=== PATIENT | male | born 1975 | race Caucasian/White ===

== ENCOUNTER → 2019-10-10 | Outpatient (REF) | LOC: M LAB LCGH 14:07 | PROVIDERS: ATTEND Surgery | DX: K35.80 Unspecified acute appendicitis (principal) ==

== ENCOUNTER → 2021-03-21 | Outpatient (REF) | payer OTHER ==
--- NOTE | 2021-03-22 10:09 | ECHO ---
DATE OF PROCEDURE: 03/21/2021 Age: 45 Gender: Male Height: 175 cm Weight: 95 kg REFERRING PHYSICIAN: Obnina Fisher M.D. INDICATION: Heart murmur. MEASUREMENTS: IVS 1.0 cm LV 5.2 cm LVPW 0.9 cm LA 4.0 cm Aorta 4.0 cm IVC 1.6 cm Mitral E wave velocity 73 cm/s Mitral A wave 46 cm/s E prime septal 10.3 cm/s E prime lateral 13.1 cm/s FINDINGS: This study is of good technical quality. The patient is in sinus rhythm. Left ventricle is normal size. There is hyperdynamic contractility, I estimate overall LVEF 60% to 65%. No segmental wall motion abnormalities are noted. Right ventricle is also of normal size and systolic function. Left atrium is borderline dilated. Right atrium appears normal. Aortic valve is tricuspid and has normal mobility. Mitral valve and tricuspid valve appear normal. Pulmonic valve also appears normal based on limited views. No pericardial effusion is noted. Inferior vena cava is of normal size and appropriately collapses with inspiration corresponding to normal central venous pressure. Aortic root is borderline dilated at 4.0 cm. Aortic root appears normal. Abdominal aorta was not well seen. Doppler interrogation reveals no aortic stenosis or insufficiency. There is trace mitral insufficiency. Tricuspid valve is functionally competent and the same applies for pulmonic valve. Mitral inflow pattern and tissue Doppler imaging of mitral annulus revealed normal diastolic function. CONCLUSIONS: 1. Study is of acceptable technical quality, underlying sinus rhythm. 2. Normal LV size with normal LV systolic function, estimated LVEF 65% to 70%, normal diastolic function. 3. No significant valvular disease. 4. Mildly dilated aortic root (4.0 cm). 5. Likely normal central venous pressure, unable to estimate pulmonary artery pressure. [facility]
== END ==
LOC: M CARPUL 13:11 → EDSTATUS 13:30
PROVIDERS: ATTEND Internal Medicine
DX: R01.1 Cardiac murmur, unspecified (principal)

== ENCOUNTER → 2021-04-26 | Outpatient (REF) ==
--- NOTE | 2021-04-26 13:23 | REPPI ---
INDICATION: SOB,BACK PAIN,NASAL PAIN,PAIN IN HANDS/FEET. COMPARISON: None. TECHNIQUE: Six views of the paranasal sinuses are provided. FINDINGS: The frontal sinuses are clear. There is moderate mucosal thickening affecting the left maxillary sinus, 4-5 mm in thickness. The right maxillary sinus is clear. Ethmoid and sphenoid aeration is clear. Mastoid sinuses are normal and symmetric. Bony sinus margins are intact. Bony nasal septum appears to be in the midline. Bony orbital margins are intact. The nasopharynx is unremarkable. IMPRESSION: Moderate mucosal thickening affecting the left maxillary sinus. Otherwise negative paranasal sinus views. <Electronically signed by Donnie Peterson > 04/26/21 [id number]
--- NOTE | 2021-04-26 13:24 | REPPI ---
INDICATION: SOB,BACK PAIN,NASAL PAIN,PAIN IN HANDS/FEET. COMPARISON: No comparison chest x-ray. TECHNIQUE: Two views.. FINDINGS: The lungs are well inflated and free of infiltrate. The pleural angles are sharp. The heart size is normal. Pulmonary vasculature is not increased. No significant bony abnormality is seen. IMPRESSION: Negative chest x-ray. <Electronically signed by Donnie Peterson > 04/26/21 [id number]
--- NOTE | 2021-04-26 13:27 | REPPI ---
INDICATION: SOB,BACK PAIN,NASAL PAIN,PAIN IN HANDS/FEET. COMPARISON: None. TECHNIQUE: Three views of the thoracic spine are provided. FINDINGS: Thoracic vertebral body heights are preserved. Alignment is normal. There is mild discogenic spurring at the mid and lower thoracic levels anteriorly. Pedicles and posterior elements are intact. No fracture or collapse is seen. No bony destructive lesion is seen. No paravertebral soft tissue mass is appreciated. The visualized left lung parenchyma, cardiomediastinal silhouette, and posterior ribs are unremarkable. IMPRESSION: Mild degenerative disc disease. Otherwise negative. No acute abnormality. <Electronically signed by Donnie Peterson > 04/26/21 [id number]
--- NOTE | 2021-04-26 13:28 | REPPI ---
INDICATION: SOB,BACK PAIN,NASAL PAIN,PAIN IN HANDS/FEET. COMPARISON: None. TECHNIQUE: Four views each hand FINDINGS: Right hand: The joint spaces are symmetric and well maintained. There is no marginal osteophytosis. There are no marginal erosions. There is no periarticular osteopenia. There is no acute fracture, dislocation, or subluxation. Left hand: The joint spaces are symmetric and well maintained. There is no marginal osteophytosis. There are no marginal erosions. There is no periarticular osteopenia. There is no acute fracture, dislocation, or subluxation. IMPRESSION: Within normal limits bilaterally <Electronically signed by John Chan > 04/26/21 [id number]
--- NOTE | 2021-04-26 13:29 | REPPI ---
INDICATION: SOB,BACK PAIN,NASAL PAIN,PAIN IN HANDS/FEET. COMPARISON: None. TECHNIQUE: Four views of the lumbar spine are provided. FINDINGS: Lumbar vertebral body heights are preserved. Alignment is normal on lateral radiograph. There is a mild levoconvex curve on the frontal view. Pedicles and posterior elements are intact. Psoas margins are symmetric. Sacrum and SI joints are unremarkable. On lateral radiograph there is degenerative discogenic spurring at L4-5 L3-4 and to a lesser extent L1-2 and L2-3. No fracture or collapse is seen. There are surgical sutures adjacent to the cecum in the right lower quadrant consistent with a previous appendectomy. There is no evidence of spondylolysis or spondylolisthesis. IMPRESSION: Mild diffuse degenerative discogenic spurring. Mild levoconvex curvature. No acute bony abnormality. <Electronically signed by Donnie Peterson > 04/26/21 [id number]
--- NOTE | 2021-04-26 13:30 | REPPI ---
INDICATION: SOB,BACK PAIN,NASAL PAIN,PAIN IN HANDS/FEET. COMPARISON: None. TECHNIQUE: Four views bilateral FINDINGS: The joint spaces are symmetric and relatively well maintained. There is no evidence of acute fracture or destructive osseous lesion. Moderate sized plantar and retrocalcaneal heel spurs are seen on the left with a moderate plantar calcaneal heel spur seen on the right and a minimal retrocalcaneal heel spur IMPRESSION: Chronic changes as described above <Electronically signed by John Chan > 04/26/21 [id number]
== END ==
LOC: M PLAIMG 11:55
PROVIDERS: ATTEND Internal Medicine
DX: R06.02 Shortness of breath (principal)